=== PATIENT | male | born 1995 | race Caucasian/White ===

== ENCOUNTER 2023-05-07 15:14 | Outpatient (CLI) | payer SELFPAY ==
[2023-05-10 22:25] LABS: Fructose, Semen 182 mg/dL (150-600)
[2023-05-12 13:33] LABS: Semen Color Opaque (Grey-opaque); Semen Viscosity Increased (Not Increa.); Volume Semen 3 mL (1.5-5.0); pH Semen 8.5 (7.2-8.0)
[2023-05-12 13:34] LABS: Semen Immotility 30 %; Semen Morphology Result to Follow; Semen Non-Progressive Motility 20 %; Semen Progressive Motility 50 % (>32); Semen Total Motility 70 (>40% (PM+NP)); Sperm Count 50.4 Mil/mL (60-150 million/mL)
== END 2023-05-07 15:15 | disposition home or self-care (01) ==
LOC: CHSLAB 15:18
PROVIDERS: Visit Provider Advanced Practice Midwife
DX: Z30.09 Encounter for other general counseling and advice on contraception (principal)
CPT/HCPCS: 82757; 88160; 89320